=== PATIENT | female | born 1965 | race Two or more races ===

== ENCOUNTER 2022-10-29 01:26 | Emergency (ER) | payer OTHER ==
[~2022-10-29] VITALS: Ht 157.5 cm; Wt 75.3 kg
[2022-10-29] MEDS ORDERED: DIVALPROEX SOD500 M1 PO (01:44)
[2022-10-29] MEDS ORDERED: BUPROPION XL300 MG PO (01:44)
[2022-10-29] MEDS ORDERED: CLOPIDOGREL BIS75 MG PO (01:44)
[2022-10-29] MEDS ORDERED: ISOSORBIDE MONO30 M2 PO (01:45)
[2022-10-29] MEDS ORDERED: SUMATRIPTAN SUC50 MG PO (01:45)
[2022-10-29] MEDS ORDERED: PANTOPRAZOLE SO40 MG PO (01:45)
[2022-10-29] MEDS ORDERED: RESTORIL30 MG PO (01:45)
[2022-10-29] MEDS ORDERED: MIRTAZAPINE15 MG PO (01:45)
[2022-10-29] MEDS ORDERED: METRONIDAZOLE70 GM VG (01:46)
[2022-10-29] MEDS ORDERED: GABAPENTIN400 MG PO (01:46)
[2022-10-29] MEDS ORDERED: TOPIRAMATE100 MG PO (01:46)
[2022-10-29] MEDS ORDERED: NABUMETONE750 MG PO (01:46)
[2022-10-29] MEDS ORDERED: FLUCONAZOLE150 MG PO (01:46)
[2022-10-29] MEDS ORDERED: FAMOTIDINE20 MG PO (01:46)
[2022-10-29] MEDS ORDERED: NORFLEX100MG PO (01:46)
[2022-10-29] MEDS ORDERED: LACTULOSE10 GM/152 NGT (01:47)
[2022-10-29] MEDS ORDERED: LEVOTHYROXINE150 MCG PO (01:47)
[2022-10-29] MEDS ORDERED: RISPERIDONE1 MG PO (01:47)
== END 2022-10-29 03:52 | disposition home or self-care (01) ==
LOC: ER 01:26
DX: M79.642 Pain in left hand (principal); M79.641 Pain in right hand; Z88.0 Allergy status to penicillin; Z88.6 Allergy status to analgesic agent; I10 Essential (primary) hypertension